=== PATIENT | male | born 1970 | race Two or more races ===

== ENCOUNTER 2017-09-16 17:49 | Emergency (ER) | payer MEDICAID, OTHER, SELFPAY ==
[~2017-09-16] VITALS: Ht 172.7 cm; Wt 97.7 kg
[2017-09-16] MEDS ORDERED: EPINEPHRINE 1 MG/ML, 1ML ONE (18:14)
[2017-09-16] MEDS ORDERED: DIPHENHYDRAMINE 50 MG/ML, 1ML ONE (18:15)
[2017-09-16] MEDS ORDERED: methylPREDNISolone SOD SUCC 125 MG/2 ML ONE (18:22)
[2017-09-16] MEDS ORDERED: FAMOTIDINE 20 MG/2 ML ONE (18:22)
[2017-09-16 18:26] LABS: BASOPHILS # (AUTO) 0.04 x10^3/uL (0-0.1); BASOPHILS % (AUTO) 1 % (0-1); EOSINOPHILS # (AUTO) 0.17 x10^3/uL (0-0.4); EOSINOPHILS % (AUTO) 2 % (1-7); LYMPHOCYTES # (AUTO) 2.68 x10^3/uL (1-3.4); LYMPHOCYTES % (AUTO) 30 % (22-44); MD NO; MEAN CORPUSCULAR HEMOGLOBIN 29.4 pg (27.5-34.5); MEAN CORPUSCULAR HGB CONC 34.5 g/dL (33.2-36.2); MEAN CORPUSCULAR VOLUME 85.4 fL (81-97); MEAN PLATELET VOLUME 7.7 fL (7.4-10.4); MONOCYTES # (AUTO) 0.33 x10^3/uL (0.2-0.8); MONOCYTES % (AUTO) 4 % (2-9); NEUTROPHILS % (AUTO) 64 % (42-75); PLATELET COUNT 324 x10^3/uL (130-400); RED BLOOD COUNT 5.81 x10^6/uL (4.38-5.82); RED CELL DISTRIBUTION WIDTH 12.5 % (9.4-14.8)
[2017-09-16] MEDS ORDERED: SODIUM CHLORIDE FLUSH 10ML SYR IVF ONE (18:30)
[2017-09-16] MEDS ORDERED: EPINEPHRINE 1 MG/ML, 1ML SQ ONE (18:30)
[2017-09-16] MEDS ORDERED: DIPHENHYDRAMINE 50 MG/ML, 1ML IVPush ONE (18:30)
[2017-09-16] MEDS ORDERED: FAMOTIDINE 20 MG/2 ML IVPush ONE (18:30)
[2017-09-16] MEDS ORDERED: PLEASE ENTER ALLERGIES MC SCH (18:30)
[2017-09-16] MEDS ORDERED: SODIUM CHLORIDE 0.9% 1,000ML IVBOLUS ONE (18:30)
[2017-09-16] MEDS ORDERED: methylPREDNISolone SOD SUCC 125 MG/2 ML IVPush ONE (18:30)
[2017-09-16 18:38] LABS: ALBUMIN 3.7 g/dL (3.4-5.0); ANION GAP 9 mmol/L (5-15); CALCIUM 8.4 mg/dL (8.5-10.1); CHLORIDE 104 mmol/L (98-107)
[2017-09-16 18:43] LABS: ALANINE AMINOTRANSFERASE 35 U/L (12-78); ALKALINE PHOSPHATASE 89 U/L (45-117); CREATININE 0.97 mg/dL (0.7-1.3); TOTAL PROTEIN 7.4 g/dL (6.4-8.2)
[2017-09-16 19:55] VITALS: BP 147/89
== END 2017-09-16 19:57 | disposition home or self-care (01) ==
LOC: ED 19:51
DX: T78.3XXA Angioneurotic edema, initial encounter (principal); T46.4X5A Adverse effect of angiotensin-converting-enzyme inhibitors, initial encounter; Y92.89 Other specified places as the place of occurrence of the external cause; E11.65 Type 2 diabetes mellitus with hyperglycemia; I10 Essential (primary) hypertension; E78.00 Pure hypercholesterolemia, unspecified
CPT/HCPCS: 36415; 80053; 85025; 93005; 96361; 96372; 96374; 96375; 99285; J0171; J1200; J2930; J7030; S0028

== ENCOUNTER 2019-05-28 06:39 | Emergency (ER) | payer OTHER ==
[~2019-05-28] VITALS: Ht 170.2 cm; Wt 92.5 kg
[2019-05-28 06:41] VITALS: BP 165/95
--- NOTE | 2019-05-28 06:48 | NUR ---
pt arrived w pair of knives, labeled and dropped off to security.
--- NOTE | 2019-05-28 06:55 | NUR ---
PT HERE FOR LACERATION TO LEFT INDEX FINGER- SUSTAINED AT WORK WHILE CUTTING LETTUCE WITH A PAIRING KNIFE. FINGER STILL WITH MODERATE AMOUNT OF BLEEDING, PT PROVIDED WITH GAUZE TO STAUNCH BLEEDING. PT SITTING ON GURNEY. RIVAS.
[2019-05-28] MEDS ORDERED: LIDOCAINE-MPF 1%, 5ML ONE (07:21)
[2019-05-28] MEDS ORDERED: DIPH,PERTUSS(ACELL),TET VAC/PF 0.5 ML IM-VACC ONE ×2 (07:27→07:30)
[2019-05-28] MEDS ORDERED: LIDOCAINE-MPF 1%, 5ML INFIL ONE (07:30)
--- NOTE | 2019-05-28 07:38 | NUR ---
LACERATION CLEANED WITH STERILE SALINE, PA AT BEDSIDE SUTURING LACERATION NOW.
--- NOTE | 2019-05-28 07:54 | NUR ---
PT MEDICATED PER EMAR. 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
[2019-05-28] MEDS ORDERED: NEOSPORIN OINT. PKT 1 PACKET ONE (07:56)
== END 2019-05-28 08:29 | disposition home or self-care (01) ==
LOC: ED 08:16
DX: S61.211A Laceration without foreign body of left index finger without damage to nail, initial encounter (principal); W26.0XXA Contact with knife, initial encounter; Y93.89 Activity, other specified; Y92.69 Other specified industrial and construction area as the place of occurrence of the external cause; Y99.8 Other external cause status
CPT/HCPCS: 12042; 90471; 90715